=== PATIENT | male | born 1935 | race Caucasian/White ===

== ENCOUNTER 2016-09-16 11:13 | Outpatient (CLI) | payer MEDICARE, OTHER ==
[~2016-09-16] VITALS: Ht 188 cm; Wt 95.5 kg
[~2016-09-16 11:13] MED LIST: ASCORBIC ACID500 MG PO; BAYER CHEWABLE81 MG PO; BETAPACE 120 M120 MG PO; CYMBALTA30 MG PO; HYDROCODON-ACE1 EAC7; HYDROCODON-ACE1 EAC7 PO; HYDROCODONE-APA1 TAB PO; NEURONTIN 300300 MG PO; VITAMIN D10000 UNI1 PO; VITAMIN E400 UNI2 PO
[2016-09-16 13:01] VITALS: BP 128/72; Ht 188 cm; Wt 95.5 kg
--- NOTE | 2016-09-16 18:00 | NUR ---
1325- PT WITH PORT ALREADY ACCESSED. NS WITH BLOOD TUBING HOOKED UP TO PT. PREOP MEDICATIONS ADMINISTERED PER ORDERS. 1345- FIRST PRBC UNIT TRANSFUSING. VSS, SEE RECORD. LUNCH TOLERATED, PT RESTING WITH HOB ELEVATED. AT BEDSIDE. 1500- PT UP TO BR WITH X1 ASSIST. VOIDED WITHOUT DIFFICULTY. 1600-FIRST PRBC UNIT COMPLETED, SECOND PRBC UNIT CHECKED AND TRANSFUSING. 1700- PT CONTINUES TO REST. ENCOURAGED TO CALL FOR ASSIST IF NEEDED. REMAINS AT BEDSIDE. WILL CONTINUE TO MONITOR. 1800- PT VSS, SEE RECORD. TRANSFUSION CONTINUES.
--- NOTE | 2016-09-16 18:09 | NUR ---
REPORT GIVEN TO FLORA NASH RN.
--- NOTE | 2016-09-16 19:29 | NUR ---
PORT FLUSHED WITH HEPRIN AND SALINE, NEEDLE REMOVED
== END 2016-09-16 19:15 | disposition home or self-care (01) ==
LOC: D.OPS 11:13
DX: D64.9 Anemia, unspecified (principal); C90.00 Multiple myeloma not having achieved remission

== ENCOUNTER 2016-10-20 10:16 | Outpatient (CLI) | payer MEDICARE, OTHER ==
[~2016-10-20] VITALS: Ht 188 cm; Wt 95.5 kg
[2016-10-20 10:57] VITALS: Ht 188 cm; Wt 95.5 kg
--- NOTE | 2016-10-20 18:25 | NUR ---
PORT FLUSHED PER PROTOCOL, DC'D WITHOUT REDNESS OR SWELLING. DISCHARGE INSTRUCTIONS REVIEWED WITH PATIENT AND . VERBALIZED UNDERSTANDING. POST BLOOD TRANSFUSION INSTRUCTIONS REVIEWED, VERBALIZED UNDERSTANDING. NO S/S OF REACTION NOTED. DC'D HOME WITH VIA WC.
== END 2016-10-20 18:29 | disposition home or self-care (01) ==
LOC: D.OPS 10:16
DX: D64.9 Anemia, unspecified (principal)

== ENCOUNTER 2016-11-02 09:59 | Outpatient (CLI) | payer MEDICARE, OTHER ==
[~2016-11-02] VITALS: Ht 188 cm; Wt 93.2 kg
[2016-11-02] MEDS ORDERED: PRESERVISION AR1 CAP PO (12:09)
[2016-11-02] MEDS ORDERED: ASCORBIC ACID500 MG PO (12:09)
[2016-11-02 12:25] VITALS: BP 140/75; Ht 188 cm; Wt 93.2 kg
== END 2016-11-02 16:00 | disposition home or self-care (01) ==
LOC: D.OPS 09:59
DX: D64.9 Anemia, unspecified (principal)

== ENCOUNTER 2016-11-25 08:29 | Outpatient (CLI) | payer MEDICARE, OTHER ==
[~2016-11-25] VITALS: Ht 188 cm; Wt 95.5 kg
[~2016-11-25 08:29] MED LIST changes: +PRESERVISION AR1 CAP PO
[2016-11-25] MEDS ORDERED: DEXAMETHASONE1 MG PO (10:33)
[2016-11-25] MEDS ORDERED: [UNRECOGNIZED DRUG - OTHER] PO (10:33)
[2016-11-25] MEDS ORDERED: [UNRECOGNIZED DRUG - OTHER] (10:34)
[2016-11-25] MEDS ORDERED: BACTRIM DS TABL1 TAB PO (10:35)
[2016-11-25] MEDS ORDERED: ZOVIRAX400 MG PO (10:35)
[2016-11-25 10:36] VITALS: Ht 188 cm; Wt 95.5 kg
--- NOTE | 2016-11-25 13:00 | NUR ---
BLOOD TRANSFUSING, SEE BLOOD TRANSFUSION RECORD FOR VS
== END 2016-11-25 16:01 | disposition home or self-care (01) ==
LOC: D.OPS 08:29
DX: D64.9 Anemia, unspecified (principal)

== ENCOUNTER 2016-12-09 10:21 | Outpatient (CLI) | payer MEDICARE, OTHER ==
[~2016-12-09 10:21] MED LIST changes: +BACTRIM DS TABL1 TAB PO; +DEXAMETHASONE1 MG PO; +NINLARO; +ZOVIRAX400 MG PO; +[UNRECOGNIZED DRUG - OTHER] PO
--- NOTE | 2016-12-09 12:18 | NUR ---
RIGHT SCL INFUSAPORT ACCESSED USING 19G X 1 INCH WHEELER NEEDLE, GOOD BLOOD RETURN. NORMAL SALINE 500ML UP AT KVO WITH BLOOD TUBING.
[2016-12-09 14:29] VITALS: BP 119/81; BMI 27.0
--- NOTE | 2016-12-09 18:34 | NUR ---
181O REPORT FROM LONNIE LANGFORD R.N. PATIENT RECEIVING PLATELETS NO S/S OG BLOOD REACTIONS NOTED INFUSING VIA LEFT CHEST PORT NO REDNESS OR SWELLING.
--- NOTE | 2016-12-09 18:35 | NUR ---
1814 1ST UNIT OF PLATELETS COMPLETED. SECOND UNIT CHECJED BY 2 R.N.S. 1815 2ND UNIT PLATELETS HUNG AND INFUSING VIA PORT LEFT CHEST DRESSING INTACT NO REDNESS OR SWELLING.
--- NOTE | 2016-12-09 18:36 | NUR ---
1831 PLATELETS COMPLETE NO S/S OF BLOOD REACTIONS NOTED.
--- NOTE | 2016-12-09 18:57 | NUR ---
1847 FLUSHED PORT WITH SALINE AND HEPARIN. BLEEDING NOTED LEFT PORT SITE. PRESSURE APPLIED AND STOPPED. WHEELER NEEDLE DCD AND CATHETER INTACT.
--- NOTE | 2016-12-09 19:43 | NUR ---
193 NO S/S OF BLOOD REACTIONS NOTED. RESP EVEN AND NONLABORED. GIVEN DISCHARGE INSTRUCTIONS AND BLOOD POST TRANSFUSION SHEET. REMINDED TO KEEP BLOOD BAND ON X 72 HOURS.
--- NOTE | 2016-12-09 19:44 | NUR ---
1935 TO HOME VIA W/C WITH SPOUSE.
== END 2016-12-09 19:35 | disposition home or self-care (01) ==
LOC: D.OPS 10:21
DX: D69.6 Thrombocytopenia, unspecified (principal); D64.9 Anemia, unspecified

== ENCOUNTER 2017-01-06 09:40 | Outpatient (CLI) | payer MEDICARE, OTHER ==
[2017-01-06 10:07] VITALS: BP 135/88; BMI 27.7
--- NOTE | 2017-01-06 12:15 | NUR ---
1200- FIRST UNIT PRBC'S TRANSFUSING. PT SITTING UP IN BED WITH HOB ELEVATED. TOLERATING FOOD AND DRINK. VSS. WILL MONITOR.
--- NOTE | 2017-01-06 17:40 | NUR ---
1500-SECOND UNIT PRBC'S TRANSFUSING WITHOUT INCIDENT. AT BEDSIDE. VSS. CONTINUING TO MONITOR.
--- NOTE | 2017-01-06 17:41 | NUR ---
1705- SECOND UNTI COMPLETED. PT TO REMAIN FOR 1 HOUR FOR POST TRANSFUSION OBSERVATION AND VITAL SIGNS. PT COMFORTABLE. WILL CONTINUE TO MONITOR. VSS.
--- NOTE | 2017-01-06 18:18 | NUR ---
1809- DISCHARGE INSTRUCTIONS COMPLETED. PT VERBALIZES UNDERSTANDING. PAPERWORK SIGNED. PORT FLUSHED AND DEACCESSED. PT TOLERATED. 1814- PT DISCHARGED VIA WHEELCHAIR WITH
== END 2017-01-06 18:15 | disposition home or self-care (01) ==
LOC: D.OPS 09:40
DX: D64.9 Anemia, unspecified (principal); D69.6 Thrombocytopenia, unspecified

== ENCOUNTER → 2017-02-09 10:35 | Outpatient (CLI) | payer MEDICARE, OTHER ==
[~2017-02-09] VITALS: Ht 188 cm; Wt 95.5 kg
[2017-02-09 11:52] VITALS: BP 127/62; Ht 188 cm; Wt 95.5 kg
--- NOTE | 2017-02-09 13:30 | NUR ---
PORT IS ALREADY ACCESSED FROM DR'S OFFICE, ADALBERTO 10ML OUT FOR WASTE, THEN 10ML FOR TYPE AND CROSS MATCH. NS INFUSING AT KVO THROUGH BLOOD TUBING FOR TRANSFUSION. PRBC #1 UP WITH NS. EATING LUNCH.
--- NOTE | 2017-02-09 14:30 | NUR ---
PRBC'S INFUSING WITHOUT SIGNS OF REACTION AT 150ML/HR VIA PUMP.
--- NOTE | 2017-02-09 15:45 | NUR ---
SECOND UNIT OF PRBC'S UP WITH NEW TUBING AND NS AT 125ML/HR VIA PUMP.
--- NOTE | 2017-02-09 16:00 | NUR ---
REPORT TO JASON RAMIREZRN
--- NOTE | 2017-02-09 20:05 | NUR ---
1700 PT VOIDS QS. DECLINED OFFER OF SUPPER 1745 BLOOD HAS COMPLETED, DENIES PROBLEMS WITH TRANSFUSION. LINE BEING FLUSHED WITH NS. 1830 LINE HAS BEEN FLUSHED WITH NS AND HEPARIN PER PROTOCOL. PT IS TO RECEIVE TX TOMORROW CAME ACCESSED AND WILL LEAVE ACCESSED. 1845 NO PROBLEMS WITH TRANSFUSION, RELEASED IN WC, SURFACE SUPERVISOR HOME.
== END | disposition home or self-care (01) ==
LOC: D.OPS 09:30
DX: D64.9 Anemia, unspecified (principal); C90.00 Multiple myeloma not having achieved remission

== ENCOUNTER 2019-11-22 11:37 | Inpatient (IN) | payer MEDICARE, OTHER ==
[~2019-11-22] VITALS: Ht 188 cm; Wt 96.2 kg
[2019-11-22] MEDS ORDERED: VITAMIN B-121000 MCG PO (11:52)
[2019-11-22] MEDS ORDERED: DARZALEX (11:52)
[2019-11-22] MEDS ORDERED: FOLIC ACID1 MG PO (11:52)
[2019-11-22] MEDS ORDERED: CITRACAL + D E1 EACH PO (11:53)
[2019-11-22] MEDS ORDERED: BAYER CHEWABLE81 MG PO (11:53)
[2019-11-22 12:24] LABS: BASOPHILS 0 % (0-2); EOSINOPHILS 0.9 % (0-7); HEMATOCRIT 33.8 % (42.0-54.0); HEMOGLOBIN 10.9 g/dL (13.5-17.5); IMMATURE GRANULOCYTES 0.3 % (0-5); LYMPHOCYTES 15.9 % (15-50); MCH 32.2 pg (26.0-34.0); MCHC 32.2 g/dL (31.0-37.0); MCV 99.7 fL (80.0-100.0); MEAN PLATELET VOLUME 10.5 fL (7.4-10.4); MONOCYTES 11.6 % (2-11); NEUTROPHILS 71.3 % (40-80); RBC 3.39 10x6/uL (4.20-6.10); RDW 14.3 % (11.5-14.5); WBC 3.3 10x3/uL (4.8-10.8)
[2019-11-22 12:26] LABS: PLATELET COUNT 111 10x3/uL (130-400)
[2019-11-22 12:30] LABS: CALC OSMOLALITY 287 mosm/kg (275-300); CALCIUM 11.8 mg/dL (8.5-10.1); CARBON DIOXIDE 33.3 mmol/L (21.0-32.0); CHLORIDE - SERUM 103 mmol/L (98-107); CREATININE - SERUM 1.3 mg/dL (0.6-1.3); GLUCOSE 127 mg/dL (74-106); POTASSIUM - SERUM 3.8 mmol/L (3.5-5.1); SODIUM 141 mmol/L (136-145); UREA NITROGEN 27 mg/dL (7-18); eGFR NON AFRICAN AMERICAN 56 mL/min (90-120)
[2019-11-22 12:35] LABS: APTT 25.8 SECONDS (22.8-39.4); INR 1.05 (0.85-1.17); PROTIME 13.7 SECONDS (11.6-15.0)
[2019-11-22 12:45] LABS: ALBUMIN 2.8 g/dL (3.4-5.0); ALKALINE PHOSPHATASE 57 U/L (30-120); ALT (SGPT) 23 U/L (10-68); CKMB 0.6 U/L (0.0-3.6); CREATINE KINASE 28 UL (21-232); MAGNESIUM - SERUM 1.6 mg/dL (1.8-2.4); PROTEIN - SERUM 8.6 g/dL (6.4-8.2)
[2019-11-22 12:46] LABS: TROPONIN-I < 0.017 ng/mL (0.000-0.060)
[2019-11-22 12:58] VITALS: BP 127/91
--- NOTE | 2019-11-22 13:04 | NUR ---
URINE SAMPLE OBTAINED AND SENT TO LAB
[2019-11-22 13:16] LABS: BILIRUBIN NEGATIVE (NEGATIVE); KETONE NEGATIVE (NEGATIVE); NITRITE NEGATIVE (NEGATIVE); UROBILINOGEN NORMAL (NORMAL); WHITE CELLS - URINE 0-5 /hpf (0-5)
[2019-11-22 13:17] LABS: BACTERIA FEW /HPF (NONE SEEN)
[2019-11-22 13:57] VITALS: BP 145/94
--- NOTE | 2019-11-22 14:40 | NUR ---
COVID SWAB OBTAINED AND WALKED TO LAB
[2019-11-22 15:43] VITALS: BP 142/87
[2019-11-22 17:09] VITALS: BP 156/92
--- NOTE | 2019-11-22 19:50 | NUR ---
PT FROM ER VIA STRETCHER, PT ASSISTED TO BED, RESP EVEN AND UNLABORED, NO DISTRESS NOTED, CL IN REACH, SR UP X 2.
[2019-11-22 21:26] VITALS: BP 132/95
[2019-11-23] VITALS: BP 147/99
[2019-11-23 00:35] VITALS: BP 132/95; BMI 27.2
[2019-11-23 04:02] VITALS: BP 138/83
[2019-11-23 06:48] LABS: HEMATOCRIT 35.3 % (42.0-54.0); HEMOGLOBIN 11.3 g/dL (13.5-17.5); MCH 31.8 pg (26.0-34.0); MCV 99.4 fL (80.0-100.0); MEAN PLATELET VOLUME 10.4 fL (7.4-10.4); PLATELET COUNT 108 10x3/uL (130-400); RBC 3.55 10x6/uL (4.20-6.10); RDW 14.3 % (11.5-14.5)
[2019-11-23 06:58] LABS: ANION GAP 7.2 mmol/L (8-16); CALCIUM 11.6 mg/dL (8.5-10.1); CARBON DIOXIDE 33.5 mmol/L (21.0-32.0); CREATININE - SERUM 1.4 mg/dL (0.6-1.3); MAGNESIUM - SERUM 1.4 mg/dL (1.8-2.4); PHOSPHOROUS 4.6 mg/dL (2.5-4.9); POTASSIUM - SERUM 3.7 mmol/L (3.5-5.1)
[2019-11-23 09:06] VITALS: BP 150/84
[2019-11-23 12:15] LABS: EOSINOPHILS 1 % (0-7); LYMPHOCYTES 22 % (15-50); MONOCYTES 16 % (2-11); NEUTROPHILS 57 % (40-80); PLATELET ESTIMATE DECREASED; ROULEAUX OCC
--- NOTE | 2019-11-23 13:53 | NUR ---
RECEIVED REPORT FROM ISAI DASH INTRODUCED MYSELF TO PATIENT AND FAMILY QUICK ASSESSMENT COMPLETE UTILIZING CONDOM CATH NAD SPOUSE REMAINS AT BEDSIDE
[2019-11-23 14:44] VITALS: BMI 27.2
[2019-11-23 20:15] VITALS: BP 139/92
--- NOTE | 2019-11-24 03:07 | NUR ---
PT IN BED, AWAKE, CONFUSED, RESP EVEN AND UNLABORED, NO DISTRESS NOTED, CL IN REACH, SR UP X 2.
--- NOTE | 2019-11-24 04:09 | NUR ---
I have reviewed this patient and I concur with the Shift Assessment completed by the Licensed Practical Nurse today this shift.
[2019-11-24 04:30] VITALS: BP 163/95
[2019-11-24 05:06] LABS: BASOPHILS 0 % (0-2); EOSINOPHILS 1.4 % (0-7); HEMATOCRIT 31.8 % (42.0-54.0); IMMATURE GRANULOCYTES 0.3 % (0-5); LYMPHOCYTES 22.8 % (15-50); MCH 31.4 pg (26.0-34.0); MCHC 31.4 g/dL (31.0-37.0); MEAN PLATELET VOLUME 9.9 fL (7.4-10.4); MONOCYTES 12.8 % (2-11); NEUTROPHILS 62.7 % (40-80); PLATELET COUNT 87 10x3/uL (130-400); RBC 3.18 10x6/uL (4.20-6.10); RDW 14.3 % (11.5-14.5); WBC 2.9 10x3/uL (4.8-10.8)
[2019-11-24 05:20] LABS: ANION GAP 8.2 mmol/L (8-16); CALCIUM 10.6 mg/dL (8.5-10.1); CARBON DIOXIDE 32.7 mmol/L (21.0-32.0); CREATININE - SERUM 1.3 mg/dL (0.6-1.3)
[2019-11-24 05:23] LABS: POTASSIUM - SERUM 2.9 mmol/L (3.5-5.1)
[2019-11-24 10:02] VITALS: BP 170/112
[2019-11-24 14:20] VITALS: BP 144/93
[2019-11-24 17:06] VITALS: BP 147/99
--- NOTE | 2019-11-24 19:23 | NUR ---
I have reviewed this patient and I concur with the Shift Assessment completed by the Licensed Practical Nurse today this shift.
[2019-11-24 20:00] VITALS: BP 149/105
[2019-11-25 00:02] VITALS: BP 145/81
[2019-11-25 04:20] VITALS: BP 153/104
[2019-11-25 06:17] LABS: BASOPHILS 0 % (0-2); EOSINOPHILS 0.4 % (0-7); HEMATOCRIT 31.9 % (42.0-54.0); HEMOGLOBIN 10.4 g/dL (13.5-17.5); IMMATURE GRANULOCYTES 0.6 % (0-5); LYMPHOCYTES 10.2 % (15-50); MCH 32.1 pg (26.0-34.0); MCHC 32.6 g/dL (31.0-37.0); MCV 98.5 fL (80.0-100.0); MEAN PLATELET VOLUME 9.9 fL (7.4-10.4); MONOCYTES 10.1 % (2-11); NEUTROPHILS 78.7 % (40-80); PLATELET COUNT 93 10x3/uL (130-400); RBC 3.24 10x6/uL (4.20-6.10); RDW 14.2 % (11.5-14.5)
[2019-11-25 06:24] LABS: WBC 5.4 10x3/uL (4.8-10.8)
[2019-11-25 06:39] LABS: ANION GAP 8.9 mmol/L (8-16); CALCIUM 9.7 mg/dL (8.5-10.1); CARBON DIOXIDE 30.2 mmol/L (21.0-32.0); CREATININE - SERUM 1.2 mg/dL (0.6-1.3); POTASSIUM - SERUM 3.1 mmol/L (3.5-5.1)
--- NOTE | 2019-11-25 07:15 | NUR ---
RECEIVE SHIFT REPORT. RESTING IN BED AT BEDSIDE. DENIES ANY NEEDS AT THIS TIME. WILL CONTINUE PLAN OF CARE AND SAFETY PRECAUTIONS.
[2019-11-25 07:48] LABS: PLATELET ESTIMATE NORMAL
[2019-11-25 08:46] VITALS: BP 138/92
[2019-11-25 11:40] VITALS: BP 137/85
[2019-11-25 15:00] VITALS: BP 144/66
[2019-11-25 20:00] VITALS: BP 168/104
--- NOTE | 2019-11-25 20:03 | NUR ---
SPOKE WITH , PASSCODE PROVIDED. UPDATE GIVEN, QUESTIONS ANSWERED.
[2019-11-26] VITALS: BP 140/80
[2019-11-26 05:28] LABS: BASOPHILS 0 % (0-2); EOSINOPHILS 0.2 % (0-7); HEMATOCRIT 31.4 % (42.0-54.0); HEMOGLOBIN 10.1 g/dL (13.5-17.5); IMMATURE GRANULOCYTES 0.4 % (0-5); LYMPHOCYTES 12.8 % (15-50); MCH 31.6 pg (26.0-34.0); MCHC 32.2 g/dL (31.0-37.0); MCV 98.1 fL (80.0-100.0); MEAN PLATELET VOLUME 10.4 fL (7.4-10.4); MONOCYTES 14.4 % (2-11); NEUTROPHILS 72.2 % (40-80); PLATELET COUNT 98 10x3/uL (130-400); RDW 14.2 % (11.5-14.5); WBC 4.9 10x3/uL (4.8-10.8)
[2019-11-26 05:55] LABS: CARBON DIOXIDE 25.4 mmol/L (21.0-32.0); POTASSIUM - SERUM 3.4 mmol/L (3.5-5.1)
[2019-11-26 05:56] LABS: INR 1.11 (0.85-1.17); PROTIME 14.2 SECONDS (11.6-15.0)
[2019-11-26 06:09] LABS: CREATININE - SERUM 1.6 mg/dL (0.6-1.3)
[2019-11-26 09:11] VITALS: BP 156/94
[2019-11-26 12:41] VITALS: BP 165/107
[2019-11-26 16:58] VITALS: BP 156/97
--- NOTE | 2019-11-26 19:00 | NUR ---
BEDSIDE REPORT RECEIVED AND CARE OF PT ASSUMED. PT LYING IN LOW ESPINOZA'S POSITION WITH EYES CLOSED AND EASY RESPIRATIONS. LEFT INFUSAPORT PATENT WITH NS INFUSING AT 75 ML/HR. WILL MONITOR FOR NEEDS.
[2019-11-26 20:00] VITALS: BP 132/80
--- NOTE | 2019-11-26 20:03 | NUR ---
HS MEDICATIONS GIVEN. WILL CONTINUE TO MONITOR FOR NEEDS.
[2019-11-27] VITALS: BP 169/98
[2019-11-27 04:00] VITALS: BP 143/80
[2019-11-27 06:16] LABS: BASOPHILS 0 % (0-2); EOSINOPHILS 0.6 % (0-7); HEMATOCRIT 29.9 % (42.0-54.0); HEMOGLOBIN 9.5 g/dL (13.5-17.5); IMMATURE GRANULOCYTES 0.2 % (0-5); LYMPHOCYTES 10.1 % (15-50); MCH 31.5 pg (26.0-34.0); MCHC 31.8 g/dL (31.0-37.0); MEAN PLATELET VOLUME 10.2 fL (7.4-10.4); NEUTROPHILS 70.1 % (40-80); PLATELET COUNT 81 10x3/uL (130-400); RBC 3.02 10x6/uL (4.20-6.10); RDW 14.4 % (11.5-14.5); WBC 4.7 10x3/uL (4.8-10.8)
[2019-11-27 06:31] LABS: ANION GAP 11.2 mmol/L (8-16); CALCIUM 8.7 mg/dL (8.5-10.1); CARBON DIOXIDE 24.5 mmol/L (21.0-32.0); CREATININE - SERUM 2.2 mg/dL (0.6-1.3); POTASSIUM - SERUM 3.7 mmol/L (3.5-5.1)
[2019-11-27 07:16] LABS: RAPID PLASMA REAGIN Non Reactive (Non Reactive)
--- NOTE | 2019-11-27 09:00 | NUR ---
PT GIVEN BED BATH BY NURSING STUDENTS. BED ALARM ON. CL IN REACH. SALVATORE IN ROOM. WCTM
[2019-11-27 09:46] VITALS: BP 167/115
--- NOTE | 2019-11-27 10:16 | NUR ---
BLADDER SCAN SHOWED 999+ ML OF FLUID IN BLADDER. CAZARES PLACED PER DR MOHAN. CLAMPED CAZARES AFTER 1000 ML. WILL UNCLAMP TO DRAIN REST OF BLADDER. TOLERATED WELL. STATES SOME RELIEF. SALVATORE IN ROOM. TOOK MEDS PER EMAR. SMALL PILLS TWO AT A TIME. CL IN REACH. BED ALARM ON. WCTM
--- NOTE | 2019-11-27 10:57 | NUR ---
CALLED RT FOR BREATHING TREATMENT AFTER PHYSICAL THERAPY GOT PT TO SIDE OF BED. STATED DESATED TO 88% PULSE OX. GETTING SHORT OF BREATHE AND DIZZY. PT LAID BACK DOWN AND O2 SAT CAME BACK UP. CL IN REACH. WCTM
[2019-11-27 12:00] VITALS: BP 160/85
--- NOTE | 2019-11-27 13:12 | NUR ---
PT SALVATORE STATES IS A DNR. WILL MAKE WISHES KNOWN TO DR MOHAN IN AM.
[2019-11-27 13:52] LABS: PLATELET ESTIMATE DECREASED
--- NOTE | 2019-11-27 13:56 | NUR ---
Nutrition Follow-up: Diet: Cardiac PO intake: ~58% average x last 3 meals Last BM: 11/25/19 x 2. Wt: 212# (11/23/19) Meds noted: abx, probiotics, NS@125 Labs noted: BUN 27(H), Cr 2.2(H), GFR 30(L), Glu 113(H) Recommend continue current diet. Encourage PO intake and offer oral nutrition supplements. RD following.
[2019-11-27 13:58] LABS: ROULEAUX OCC
--- NOTE | 2019-11-27 14:47 | NUR ---
ORDER FOR DNR ORDER OBTAINED. LIVING WILL DOCUMENTED VIA [facility]. COPY PLACED IN PAPER CHART. SALVATORE IN ROOM. CL IN REACH. TM
--- NOTE | 2019-11-27 17:29 | NUR ---
OT NOTE: PT COMPLETED SUPINE TO SIT WITH MOD X 2. PT COMPLETED EOB SITTING WITH MIN A. PT COMPLETED FACE HYGIENE WITH MIN A. [id number] THANK YOU,FREYA MADDEN
[2019-11-27 18:24] VITALS: BP 113/69
--- NOTE | 2019-11-27 19:30 | NUR ---
ASSUMED CARE OF PATIENT AT 1900, PATIENT RESTING QUIETLY WITH EYES CLOSED, AWAKENS TO VERBAL STIMULI, NO DISTRESS NOTED, IV INFUSING WITHOUT COMPLICATIONS, CAZARES DRAINING VIA GRAVITY WITHOUT COMPLICATIONS, EDEMA BLE, WILL CONTINUE TO MONITOR PATIENT, CALL LIGHT WITHIN REACH
[2019-11-27 19:36] VITALS: BP 133/79
[2019-11-28] VITALS (7 sets, daily range): BP systolic 134–163; BP diastolic 71–93; Ht 188 cm; Wt 96.2 kg
--- NOTE | 2019-11-28 12:10 | MORECARE ---
CASE MANAGEMENT DISCHARGE SUMMARY PATIENT: ALICIA MEDEIROS UNIT: [id number] ADM DATE: 11/22/19 AGE: 84 : 34 SEX: M ROOM/BED: D.2225 AUTHOR: AUDREY,DOC PHYSICIAN: REFERRING PHYSICIAN: ISMAEL MOHAN MD DATE OF SERVICE: 11/28/19 Discharge Plan Patient Name: ALICIA MEDEIROS Facility: [facility]:[place] : 1935 Planned Disposition: Half-Way Facility Anticipated Discharge Date: Discharge Date: Expected LOS: Initial Reviewer: [email or web address] Initial Review Date: 11/28/2019 Generated: 11/28/19 1:10 pm Comments DCP- Discharge Planning Updated by [id number]: Lexus Finley on 11/28/19 11:[address] Patient Name: ALICIA MEDEIROS Admission Status: ER Accout number: [id number] Admission Date: 11-22-2019 : 1935 Admission Diagnosis:METABOLIC ENCEPHALOPATHY Attending: ISMAEL MOHAN Current LOS: 6 Anticipated DC Date: Planned Disposition: Half-Way Facility Primary Insurance: MEDICARE A & B Discharge Planning Comments: CM met PATIENT SALVATORE after explaining CM role and obtaining verbal consent. SHE IS ALSO HIS POA. CM discussed availability / needs of home health, REHAB and medical equipment. SHE IS INTERESTED IN SNF THEN TRANSITION TO [facility] INBOARD/OUTBOARD OR POSSIBLLY HOSPICE. SHE IS INTERESTED IN [facility] OR [facility]. CANDACE SIGNED. I AM FAXING REFERRAL TO [facility] NOW. Traffic Rate Analyst: Lexus Finley DCPIA - Discharge Planning Initial Assessment Updated by [id number]: Lexus Finley on 11/28/19 12:06 pm * Is the patient Alert and Oriented? Yes * Preadmission Environment Home with Family * Other Equipment WALKER * List name and contact numbers for known caregivers / representatives who currently or will assist patient after discharge: SALVATORE//POA [phone] * Community resources currently utilized None * Additional services required to return to the preadmission environment? Yes * Can the patient safely return to the preadmission environment? No * Has this patient been hospitalized within the prior 30 days at any hospital? No Patient Name: ALICIA MEDEIROS Page [phone] at 1210 All edits/amendments must be made on the electronic document DICTATION DATE: 11/28/191209 BENCH CARPENTER: CLEMENT 11/28/19 1210 RPT#: [id number] DC DATE: STATUS: ADM IN [facility] [address] [place] [address] END OF REPORT
[2019-11-28 13:04] LABS: ANION GAP 10.9 mmol/L (8-16); CALCIUM 7.9 mg/dL (8.5-10.1); CARBON DIOXIDE 26.3 mmol/L (21.0-32.0); POTASSIUM - SERUM 3.2 mmol/L (3.5-5.1)
[2019-11-28 13:05] LABS: CREATININE - SERUM 1.3 mg/dL (0.6-1.3)
--- NOTE | 2019-11-28 13:44 | NUR ---
OT NOTE: PT ALERT IN BED THIS AM. IMPROVED ABILITY ANSWERING QUESTIONS. MAX ASSIST X 2 FOR BED MOB..PT VERY FEARFUL DURING ALL MOBILTY; SEVERE POSTURAL INSTABILITY; POOR PROPRIOCEPTION. UNABLE TO SIT UNSUPPORTED..UNABLE TO RAISE UES WHILE ON EOB DUE TO FEAR OF FALLING. PRACTICED BED MOB INCLUDING ROLLING SIDE TO SIDE WITH MAX ASSIST X 2; MAX ASSIST X 2 FOR REPOSITIONING. CHELI CHOI, OTR/L [phone]
--- NOTE | 2019-11-28 14:14 | NUR ---
PT SPOUSE CALLED ME TO ROOM STATED PT SAYS STOMACH HURTS HAS NOT HAD A BM IN OVER A DAY AND HE IS NOT EATING WELL, CALLED DR LEWIS OFFICE AND RELAYED MESSAGE TO DR MOHAN'S NURSE. NURSE RETURNED CALL AND PER DR MOHAN M.O.M 30MG Q6 PRN AND A KUB. PLACING ORDERS NOW
--- NOTE | 2019-11-28 15:11 | NUR ---
I have reviewed this patient and I concur with the Shift Assessment completed by the Licensed Practical Nurse today this shift.
--- NOTE | 2019-11-29 02:53 | NUR ---
I have reviewed this patient and I concur with the Shift Assessment completed by the Licensed Practical Nurse today this shift.
[2019-11-29 04:00] VITALS: BP 160/98; BP 170/105
[2019-11-29 06:07] LABS: BASOPHILS 0 % (0-2); EOSINOPHILS 0.5 % (0-7); HEMATOCRIT 27.5 % (42.0-54.0); HEMOGLOBIN 8.8 g/dL (13.5-17.5); IMMATURE GRANULOCYTES 0.5 % (0-5); LYMPHOCYTES 11.3 % (15-50); MCH 31.2 pg (26.0-34.0); MCV 97.5 fL (80.0-100.0); MEAN PLATELET VOLUME 10.4 fL (7.4-10.4); MONOCYTES 20.1 % (2-11); NEUTROPHILS 67.6 % (40-80); PLATELET COUNT 90 10x3/uL (130-400); RBC 2.82 10x6/uL (4.20-6.10); RDW 14.1 % (11.5-14.5)
[2019-11-29 06:29] LABS: ANION GAP 10.9 mmol/L (8-16); CALCIUM 7.9 mg/dL (8.5-10.1); CREATININE - SERUM 1.1 mg/dL (0.6-1.3)
[2019-11-29 06:59] LABS: POTASSIUM - SERUM 2.9 mmol/L (3.5-5.1)
--- NOTE | 2019-11-29 07:14 | NUR ---
PT IN BED WITH HOB IN FOWLERS POSITION, PER LAB PATIENT HAS CRITICAL K+ OF 2.9. PER PROTOCOL, ADMINISTERED PRN K+. FIRST BAG RUNNING. NO NEEDS VOICED FROM PATIENT, CL IN REACH, BED IN LOWEST POSITION, ASSUME PATIENT CARE
[2019-11-29 08:51] VITALS: BP 167/101
--- NOTE | 2019-11-29 08:57 | MORECARE ---
CASE MANAGEMENT DISCHARGE SUMMARY PATIENT: ALICIA MEDEIROS UNIT: [id number] ADM DATE: 11/22/19 AGE: 84 : 34 SEX: M ROOM/BED: D.2225 AUTHOR: AUDREYDOC PHYSICIAN: REFERRING PHYSICIAN: ISMAEL MOHAN MD DATE OF SERVICE: 11/29/19 Discharge Plan Patient Name: ALICIA MEDIEROS Facility: [facility]:[place] : 1935 Planned Disposition: Custodial Facility Anticipated Discharge Date: Discharge Date: Expected LOS: Initial Reviewer: [email or web address] Initial Review Date: 11/28/2019 Generated: 11/29/19 9:56 am Comments DCP- Discharge Planning Updated by [id number]: Lexus Finley on 11/29/19 7:[address] Patient Name: ALICIA MEDEIROS Admission Status: ER Accout number: [id number] Admission Date: 11-22-2019 : 1935 Admission Diagnosis:METABOLIC ENCEPHALOPATHY Attending: ISMAEL MOHAN Current LOS: 7 Anticipated DC Date: Planned Disposition: Custodial Facility Primary Insurance: MEDICARE A & B Discharge Planning Comments: RECEIVED CALL FROM [facility] AND THEY DO NOT HAVE BED AVAILABILITY. I HAVE FAXED TO [facility] CALL BACK. Neurophysiological Technician: Lexus Finley DCP- Discharge Planning Updated by [email or web address]: Lexus Finley on 11/28/19 11:[address] Patient Name: ALICIA MEDEIROS Admission Status: ER Accout number: [id number] Admission Date: 11-22-2019 : 1935 Admission Diagnosis:METABOLIC ENCEPHALOPATHY Attending: ISMAEL MOHAN Current LOS: 6 Anticipated DC Date: Planned Disposition: Custodial Facility Primary Insurance: MEDICARE A & B Discharge Planning Comments: CM met PATIENT SALVATORE after explaining CM role and obtaining verbal consent. SHE IS ALSO HIS POA. CM discussed availability / needs of home health, REHAB and medical equipment. SHE IS INTERESTED IN SNF THEN TRANSITION TO SNF OR POSSIBLLY HOSPICE. SHE IS INTERESTED IN [facility] OR [facility]. CANDACE SIGNED. I AM FAXING REFERRAL TO [facility] NOW. Neurophysiological Technician: Lexus Finley DCPIA - Discharge Planning Initial Assessment Updated by [id number]: Lexus Finley on 11/28/19 12:06 pm * Is the patient Alert and Oriented? Yes * Preadmission Environment Home with Family * Other Equipment WALKER * List name and contact numbers for known caregivers / representatives who currently or will assist patient after discharge: SALVATORE//POA [phone] * Community resources currently utilized None * Additional services required to return to the preadmission environment? Yes * Can the patient safely return to the preadmission environment? No * Has this patient been hospitalized within the prior 30 days at any hospital? No External Providers External Provider: [facility] Next Contact Date: Service Request Date: Service Type: Resolution: Reviewer: Comments: Coverage Notice Reviewer: [id number] - Lexusdonnie Finley Notice Issued Date-Time: 11/28/2019 12:15 Notice Type: Patient Choice Letter Notice Delivered To: Family Member Relationship to Patient: Power of Building Engineer Manager Of Information Name: SALVATORE IS AND POA Delivery Method: HAND - Hand Delivered Danae Days: Prior Verbal Notification: Recipient Understood Notice: Yes Recipient Signature: Yes Med Rec Note Co-signed by Attending: Coverage Notice Comment: CHANTELL ARAYA. Last DP export: 11/28/19 11:10 a Patient Name: ALICIA MEDEIROS Page [phone] at 0857 All edits/amendments must be made on the electronic document DICTATION DATE: 11/29/19855 BRANCH OPERATIONS COORDINATOR: CLEMENT 11/29/1957 RPT#: [id number] DC DATE: STATUS: ADM IN [facility] [address] [place] [address] END OF REPORT
--- NOTE | 2019-11-29 11:35 | NUR ---
PATIENT C/O PAIN IN LEFT HIP LEG AREA, REPLETED PT POTASSIUM, PATIENT HAS NOT HAD A BM SINCE TUESDAY EVENING, SPOUSE VERY CONCERNED, PATIENT ABLE TO EAT HALF OF HIS BREAKFAST AND HAD A M.O.M THIS MORNING WITH SCHEDULED MEDS, TOLD PATIENT SPOUSE IF PATIENT STILL HAS NOT GONE THIS AFTERNOON WILL CALL DR MOHAN. NO OTHER NEEDS VOICED, CONTINUE WITH PLAN OF CARE
[2019-11-29 11:38] LABS: ANISOCYTOSIS OCC; HYPOCHROMASIA OCC; PLATELET ESTIMATE DECREASED; ROULEAUX OCC
[2019-11-29 11:59] VITALS: BP 135/93
--- NOTE | 2019-11-29 15:30 | NUR ---
OT NOTE: PT REMAINS VERY CONFUSED.. ORIENTED TO SELF ONLY. DIFFICULTY FOLLOWING 1 STEP COMMANDS. STARTED TMT WITH A/AROM FOR UES, OF WHICH PT PERFORMED WELL, HOWEVER, WITH ATTEMPTS FOR LE DRESSING, PT RESISTANT IN ALL MOVEMENT; PHYSICALLY HAD TO MOVE ALL JOINTS REQUIRING MODERATE ASSIST. ATTEMPTED BED MOB, HOWEVER, DUE TO PTS POSTURAL INSTABILITY, HE IS EXTREMELEY FEARFUL OF ALL MOVEMENT. SUPINE TO SIT WITH MAX ASSIST X 2. UPON PLACING PT BACK TO SUPINE, PERFORMED JOINT FOR SEVERAL MIN TO RELAX UE MUSCLES AND LESSEN ANXIETY. CHELI CHOI, OTR/L [phone]
[2019-11-29 16:23] VITALS: BP 131/88
--- NOTE | 2019-11-29 16:38 | MORECARE ---
CASE MANAGEMENT DISCHARGE SUMMARY PATIENT: ALICIA MEDEIROS UNIT: [id number] ADM DATE: 11/22/19 AGE: 84 : 34 SEX: M ROOM/BED: D.2225 AUTHOR: AUDREYDOC PHYSICIAN: REFERRING PHYSICIAN: ISMAEL MOHAN MD DATE OF SERVICE: 11/29/19 Discharge Plan Patient Name: ALICIA MEDEIROS Facility: [facility]:[place] : 1935 Planned Disposition: Half-Way Facility Anticipated Discharge Date: Discharge Date: Expected LOS: Initial Reviewer: [id number] Initial Review Date: 11/28/2019 Generated: 11/29/19 5:37 pm Comments DCP- Discharge Planning Updated by [email or web address]: Lexus Finley on 11/29/19 7:[address] Patient Name: ALICIA MEDEIROS Admission Status: ER Accout number: [id number] Admission Date: 11-22-2019 : 1935 Admission Diagnosis:METABOLIC ENCEPHALOPATHY Attending: ISMAEL MOHAN Current LOS: 7 Anticipated DC Date: Planned Disposition: Half-Way Facility Primary Insurance: MEDICARE A & B Discharge Planning Comments: RECEIVED CALL FROM [facility] AND THEY DO NOT HAVE BED AVAILABILITY. I HAVE FAXED TO [facility] CALL BACK. Athletic Training Internship: Lexus Finley DCP- Discharge Planning Updated by [id number]: Lexus Finley on 11/28/19 11:[address] Patient Name: ALICIA MEDEIROS Admission Status: ER Accout number: [id number] Admission Date: 11-22-2019 : 1935 Admission Diagnosis:METABOLIC ENCEPHALOPATHY Attending: ISMAEL MOHAN Current LOS: 6 Anticipated DC Date: Planned Disposition: Half-Way Facility Primary Insurance: MEDICARE A & B Discharge Planning Comments: CM met PATIENT SALVATORE after explaining CM role and obtaining verbal consent. SHE IS ALSO HIS POA. CM discussed availability / needs of home health, REHAB and medical equipment. SHE IS INTERESTED IN SNF THEN TRANSITION TO [facility] OR POSSIBLLY HOSPICE. SHE IS INTERESTED IN [facility] OR [facility]. CANDACE SIGNED. I AM FAXING REFERRAL TO [facility] NOW. Athletic Training Internship: Lexus Finley DCPIA - Discharge Planning Initial Assessment Updated by [id number]: Lexus Finley on 11/28/19 12:06 pm * Is the patient Alert and Oriented? Yes * Preadmission Environment Home with Family * Other Equipment WALKER * List name and contact numbers for known caregivers / representatives who currently or will assist patient after discharge: SALVATORE//POA [phone] * Community resources currently utilized None * Additional services required to return to the preadmission environment? Yes * Can the patient safely return to the preadmission environment? No * Has this patient been hospitalized within the prior 30 days at any hospital? No External Providers External Provider: [facility] Next Contact Date: Service Request Date: Service Type: Resolution: Reviewer: Comments: Coverage Notice Reviewer: [id number] - Lexusdonnie Finley Notice Issued Date-Time: 11/28/2019 12:15 Notice Type: Patient Choice Letter Notice Delivered To: Family Member Relationship to Patient: Power of Post Adoption Coordinator Privacy Manager Name: SALVATORE IS AND POA Delivery Method: HAND - Hand Delivered Danae Days: Prior Verbal Notification: Recipient Understood Notice: Yes Recipient Signature: Yes Med Rec Note Co-signed by Attending: Coverage Notice Comment: CHANTELL ARAYA. Last DP export: 11/29/19 7:57 a Patient Name: ALICIA MEDEIROS Page 66896 at 1638 All edits/amendments must be made on the electronic document DICTATION DATE: 11/29/191636 STARS ANALYTICAL LEAD: CLEMENT 11/29/19 1637 RPT#: [id number] DC DATE: STATUS: ADM IN [facility] [address] [place] [address] END OF REPORT
--- NOTE | 2019-11-29 16:49 | NUR ---
OT NOTE: PT REQUIRED MOD/MAX A FOR SUPINE TO SIT . PT COMPLETED EOB SITTING WITH MIN A. PT COMPLETED UE AROM TOLERATED. [phone] THANK YOU,FREYA MADDEN
--- NOTE | 2019-11-29 16:52 | NUR ---
PATIENT STATED SHE WAS GOING HOME FOR THE DAY AND ASKED THAT WE FEED PATIENT, RELAYED MESSAGE TO ADOBE CQ DEVELOPER IN CASE UNAVALABLE AT THE TIME DINNER IS SERVED, PATIENT STILL HAS NOT USED THE BATHROOM AT THIS TIME, WILL CONTINUE WITH PLAN OF CARE
--- NOTE | 2019-11-29 18:45 | NUR ---
I have reviewed this patient and I concur with the Shift Assessment completed by the Licensed Practical Nurse today this shift.
[2019-11-29 20:00] VITALS: BP 100/63
[2019-11-30] VITALS: BP 100/63
--- NOTE | 2019-11-30 03:11 | NUR ---
I have reviewed this patient and I concur with the Shift Assessment completed by the Licensed Practical Nurse today this shift.
--- NOTE | 2019-11-30 08:00 | NUR ---
ASSESSMENT PER FLOW SHEET. PATIENT IS WITHOUT DISTRESS.CALL LIGHT IN REACH. BED ALARM ON AND WORKING. AT BEDSIDE.
[2019-11-30 08:49] VITALS: BP 166/115
[2019-11-30 12:39] VITALS: BP 140/82
[2019-11-30 16:53] VITALS: BP 111/84
--- NOTE | 2019-11-30 18:46 | NUR ---
PATIENT IS WITHOUT CHANGE. CONT PLAN OF CARE
[2019-11-30 20:00] VITALS: BP 142/91
--- NOTE | 2019-11-30 20:02 | NUR ---
SPOKE WITH , PASSCODE GIVEN. UPDATE GIVEN, QUESTIONS ANSWERED.
[2019-12-01] VITALS: BP 152/97
[2019-12-01 04:00] VITALS: BP 149/99
[2019-12-01 06:42] LABS: CALC OSMOLALITY 280 mosm/kg (275-300); CALCIUM 7.3 mg/dL (8.5-10.1); CHLORIDE - SERUM 107 mmol/L (98-107); CREATININE - SERUM 0.8 mg/dL (0.6-1.3); GLUCOSE 92 mg/dL (74-106); POTASSIUM - SERUM 3.6 mmol/L (3.5-5.1); SODIUM 141 mmol/L (136-145); UREA NITROGEN 13 mg/dL (7-18); eGFR NON AFRICAN AMERICAN > 90 mL/min (90-120)
[2019-12-01 06:48] LABS: BASOPHILS 0 % (0-2); EOSINOPHILS 1.9 % (0-7); HEMATOCRIT 27.6 % (42.0-54.0); HEMOGLOBIN 8.7 g/dL (13.5-17.5); IMMATURE GRANULOCYTES 0.6 % (0-5); LYMPHOCYTES 18.5 % (15-50); MCH 31.5 pg (26.0-34.0); MCHC 31.5 g/dL (31.0-37.0); MEAN PLATELET VOLUME 10.6 fL (7.4-10.4); MONOCYTES 19.2 % (2-11); NEUTROPHILS 59.8 % (40-80); RBC 2.76 10x6/uL (4.20-6.10); RDW 14.2 % (11.5-14.5); WBC 3.1 10x3/uL (4.8-10.8)
[2019-12-01 06:51] LABS: PLATELET COUNT 114 10x3/uL (130-400)
--- NOTE | 2019-12-01 07:15 | NUR ---
RECEIVED BEDSIDE REPORT. A&O TO SELF AND PLACE. DENIES PAIN. SPOUSE AT BEDSIDE. LEFT CHEST PORT, PATENT AND INFUSING, NO REDNESS OR SWELLING. CAZARES IN PLACE, PATENT AND DRAINING, CONCENTRATED URINE, STATLOCK IN PLACE. GENERALIZED EDEMA IN BILAT LOWER EXTREMITIES. PT IS DNR. INCONTIN OF BOWELS. EDUCATED PT AND SPOUSE ON CL AND NEEDS, VERBALIZED UNDERSTANDING. BED LOW, RAILS X2. CL IN REACH. WILL CONTINUE TO MONITOR.
[2019-12-01 07:44] VITALS: BP 138/99
--- NOTE | 2019-12-01 10:30 | NUR ---
COLORMAN ASSISTED PT WITH BED BATH, GOWN AND FULL LININ CHANGE. PT TOLERATED WELL.
[2019-12-01 11:43] VITALS: BP 141/95
--- NOTE | 2019-12-01 13:10 | NUR ---
PT C/O PAIN 10/21, PROVIDED PAIN MEDS PER ORDER. SPOUSE ASKED ABOUT CM PLANS FOR D/C TO FACILITY ON TUESDAY, EDUCATED PT THAT CM WOULD BE HERE TUESDAY MORNING AND BE ABLE TO ANSWER QUESTIONS REGARDING PLACEMENT. BED LOW, CL IN REACH.
[2019-12-01 15:56] VITALS: BP 129/81
--- NOTE | 2019-12-01 17:35 | NUR ---
PT C/O PAIN 10/21, PROVIDED PAIN MEDS PER ORDER.
--- NOTE | 2019-12-01 19:00 | NUR ---
BEDSIDE REPORT RECEIVED AND CARE OF PT ASSUMED. PT LYING IN SUPINE POSITION WITH EYES CLOSED. CAZARES CATHETER DRAINING TO GRAVITY WITH YELLOW URINE IN COLLECTION BAG. LEFT IP ACCESSED AND PATENT WITH NS INFUSING AT 30 ML/HR. WILL MONITOR FOR NEEDS.
--- NOTE | 2019-12-01 20:30 | NUR ---
HS MEDICATIONS GIVEN. WILL CONTINUE TO MONITOR FOR NEEDS.
[2019-12-01 20:32] VITALS: BP 135/90
--- NOTE | 2019-12-01 21:41 | NUR ---
PT TURNED ONTO RIGHT SIDE PROPPED WITH PILLOWS, PER TURN SCHEDULE.
[2019-12-02 00:31] VITALS: BP 136/92
--- NOTE | 2019-12-02 00:57 | NUR ---
PT TURNED TO LEFT SIDE PER TURN SCHEDULE, PROPPED WITH PILLOWS. HEELS BRIDGED.
--- NOTE | 2019-12-02 01:17 | NUR ---
GAVE OXY 10 PO PER PRN ORDER, PT MOANING AND YELLING OUT IN PAIN. WILL MONITOR FOR EFFECTIVENESS.
[2019-12-02 05:57] VITALS: BP 144/93
--- NOTE | 2019-12-02 08:14 | NUR ---
PATIENT MOANING THIS MORNING WHEN ARRIVED, PT STATED HE IS IN PAIN BUT UNABLE TO TELL ME WHERE. PATIENT SPOUSE CAME IN AND WAS WORRIED WELL ABOUT PATIENT BEING IN PAIN, ADMINISTERED PRN PAIN MEDICATION WILL CONTINUE WITH PLAN OF CARE
[2019-12-02 08:16] VITALS: BP 154/95
--- NOTE | 2019-12-02 09:43 | NUR ---
PATIENT IS CRYING OUT IN EXCRUCIATING PAIN, ADMINISTERED SCHEDULED PAIN MEDICATION AND ELEVATED KNEE AREA OF BED SINCE PATIENT WAS SAYING "MY KNEE OHH MY KNEE" APPLIED ICE TO THE AREA WELL. SPOKE TO SPOUSE AND TOLD HER I WILL DO MY BEST TO GET PATIENT PAIN UNDER CONTROL UNTIL MAKES ROUNDS. NO OTHER NEEDS AT THIS TIME CONTINUE WITH PLAN OF CARE
--- NOTE | 2019-12-02 10:45 | NUR ---
I have reviewed this patient and I concur with the Shift Assessment completed by the Licensed Practical Nurse today this shift.
[2019-12-02 12:23] VITALS: BP 149/104
--- NOTE | 2019-12-02 16:00 | NUR ---
ADMINISTERED PRN PAIN MEDICATION. PATIENT MOANING AND GRBBING RT LEG THIS AFTERNOON PLACED PT ICE PACK ON LEG ALSO. SPOUSE AT BEDSIDE, CONTINUE WITH PLAN OF CARE
[2019-12-02 16:40] VITALS: BP 149/101
--- NOTE | 2019-12-02 19:00 | NUR ---
BEDSIDE REPORT RECEIVED AND CARE OF PT ASSUMED. PT LYING IN MID ESPINOZA'S POSITION WITH EYES CLOSED AND EASY RESPIRATIONS. IP PATENT WITH NS INFUSING AT 30 ML/HR. CAZARES CATHETER DRAINING TO GRAVITY WITH YELLOW URINE IN COLLECTION BAG. WILL MONITOR FOR NEEDS.
--- NOTE | 2019-12-02 20:32 | NUR ---
HS MEDICATIONS GIVEN. WILL CONTINUE TO MONITOR FOR NEEDS.
[2019-12-02 21:16] VITALS: BP 127/78
[2019-12-03 01:27] VITALS: BP 129/78
[2019-12-03 05:44] VITALS: BP 122/82
[2019-12-03 07:46] VITALS: BP 156/91
[2019-12-03] MEDS ORDERED: BETAPACE 80 MG80 MG PO (07:46)
[2019-12-03] MEDS ORDERED: CATAPRES0.1 MG PO (07:47)
[2019-12-03] MEDS ORDERED: XOPENEX 1.1.25 MG/3 INH (07:47)
[2019-12-03] MEDS ORDERED: OXYCONTIN10 MG PO (07:48)
--- NOTE | 2019-12-03 09:25 | MORECARE ---
CASE MANAGEMENT DISCHARGE SUMMARY PATIENT: ALICIA MEDEIROS UNIT: [id number] ADM DATE: 11/22/19 AGE: 84 : 34 SEX: M ROOM/BED: D.2225 AUTHOR: AUDREYDOC PHYSICIAN: REFERRING PHYSICIAN: ISMAEL MOHAN MD DATE OF SERVICE: 12/03/19 Discharge Plan Patient Name: ALICIA MEDEIROS Facility: [facility]:[place] : 1935 Planned Disposition: Senior Living Facility Anticipated Discharge Date: Discharge Date: Expected LOS: Initial Reviewer: [email or web address] Initial Review Date: 11/28/2019 Generated: 12/03/19 10:24 am Comments DCP- Discharge Planning Updated by [email or web address]: Lexus Finley on 12/03/19 7:[address] Patient Name: ALICIA MEDEIROS Admission Status: ER Accout number: [id number] Admission Date: 11-22-2019 : 1935 Admission Diagnosis:METABOLIC ENCEPHALOPATHY Attending: ISMAEL MOHAN Current LOS: 11 Anticipated DC Date: Planned Disposition: Senior Living Facility Primary Insurance: MEDICARE A & B Discharge Planning Comments: FAXED UPDATE TO [facility], WAITING CALL BACK. Jig Box Operator: Lexus Finley DCP- Discharge Planning Updated by [id number]: Lexus Finley on 11/29/19 7:[address] Patient Name: ALICIA MEDEIROS Admission Status: ER Accout number: [id number] Admission Date: 11-22-2019 : 1935 Admission Diagnosis:METABOLIC ENCEPHALOPATHY Attending: ISMAEL MOHAN Current LOS: 7 Anticipated DC Date: Planned Disposition: Senior Living Facility Primary Insurance: MEDICARE A & B Discharge Planning Comments: RECEIVED CALL FROM [facility] AND THEY DO NOT HAVE BED AVAILABILITY. I HAVE FAXED TO [facility], WAITING CALL BACK. Jig Box Operator: Lexus Finley DCP- Discharge Planning Updated by [email or web address]: Lexus Finley on 11/28/19 11:[address] Patient Name: ALICIA MEDEIROS Admission Status: ER Accout number: [id number] Admission Date: 11-22-2019 : 1935 Admission Diagnosis:METABOLIC ENCEPHALOPATHY Attending: ISMAEL MOHAN Current LOS: 6 Anticipated DC Date: Planned Disposition: Senior Living Facility Primary Insurance: MEDICARE A & B Discharge Planning Comments: CM met PATIENT SALVATORE after explaining CM role and obtaining verbal consent. SHE IS ALSO HIS POA. CM discussed availability / needs of home health, REHAB and medical equipment. SHE IS INTERESTED IN SNF THEN TRANSITION TO [facility] OR [facility] HOSPICE. SHE IS INTERESTED IN [facility] OR [facility]. CANDACE SIGNED. I AM FAXING REFERRAL TO [facility] NOW. Jig Box Operator: Lexus Finley DCPIA - Discharge Planning Initial Assessment Updated by [id number]: Lexus Finley on 11/28/19 12:06 pm * Is the patient Alert and Oriented? Yes * Preadmission Environment Home with Family * Other Equipment WALKER * List name and contact numbers for known caregivers / representatives who currently or will assist patient after discharge: SALVATORE//POA [phone] * Community resources currently utilized None * Additional services required to return to the preadmission environment? Yes * Can the patient safely return to the preadmission environment? No * Has this patient been hospitalized within the prior 30 days at any hospital? No Coverage Notice Reviewer: [id number] - Lexus Finley Notice Issued Date-Time: 11/28/2019 12:15 Notice Type: Patient Choice Letter Notice Delivered To: Family Member Relationship to Patient: Power of Elevator Service Technician Body Straightener Name: SALVATORE IS AND POA Delivery Method: HAND - Hand Delivered Danae Days: Prior Verbal Notification: Recipient Understood Notice: Yes Recipient Signature: Yes Med Rec Note Co-signed by Attending: Coverage Notice Comment: [facility]. Last DP export: 11/29/19 3:38 p Patient Name: ALICIA MEDEIROS Page [phone] at 0925 All edits/amendments must be made on the electronic document DICTATION DATE: 12/03/19924 SNELLER HAND: CLEMENT 12/03/19924 RPT#: [id number] DC DATE: STATUS: ADM IN [facility] [address] [place] [address] END OF REPORT
--- NOTE | 2019-12-03 10:52 | MORECARE ---
CASE MANAGEMENT DISCHARGE SUMMARY PATIENT: ALICIA MEDEIROS UNIT: [id number] ADM DATE: 11/22/19 AGE: 84 : 34 SEX: M ROOM/BED: D.2225 AUTHOR: AUDREYDOC PHYSICIAN: REFERRING PHYSICIAN: ISMAEL MOHAN MD DATE OF SERVICE: 12/03/19 Discharge Plan Patient Name: ALICIA MEDEIROS Facility: [facility]:[place] : 1935 Planned Disposition: Retirement Facility Anticipated Discharge Date: Discharge Date: Expected LOS: Initial Reviewer: [email or web address] Initial Review Date: 11/28/2019 Generated: 12/03/19 11:51 am Comments DCP- Discharge Planning Updated by [email or web address]: Lexus Finley on 12/03/19 7:[address] Patient Name: ALICIA MDEEIROS Admission Status: ER Accout number: [id number] Admission Date: 11-22-2019 : 1935 Admission Diagnosis:METABOLIC ENCEPHALOPATHY Attending: ISMAEL MOHAN Current LOS: 11 Anticipated DC Date: Planned Disposition: Retirement Facility Primary Insurance: MEDICARE A & B Discharge Planning Comments: FAXED UPDATE TO [facility], WAITING CALL BACK. Information Systems Director: Lexus Finley DCP- Discharge Planning Updated by [email or web address]: Lexus Finley on 11/29/19 7:[address] Patient Name: ALICIA MEDEIROS Admission Status: ER Accout number: [id number] Admission Date: 11-22-2019 : 1935 Admission Diagnosis:METABOLIC ENCEPHALOPATHY Attending: ISMAEL MOHAN Current LOS: 7 Anticipated DC Date: Planned Disposition: Retirement Facility Primary Insurance: MEDICARE A & B Discharge Planning Comments: RECEIVED CALL FROM [facility] AND THEY DO NOT HAVE BED AVAILABILITY. I HAVE FAXED TO [facility], WAITING CALL BACK. Information Systems Director: Lexus Finley DCP- Discharge Planning Updated by [email or web address]: Lexus Finley on 11/28/19 11:[address] Patient Name: ALICIA MEDEIROS Admission Status: ER Accout number: [id number] Admission Date: 11-22-2019 : 1935 Admission Diagnosis:METABOLIC ENCEPHALOPATHY Attending: ISMAEL MOHAN Current LOS: 6 Anticipated DC Date: Planned Disposition: Retirement Facility Primary Insurance: MEDICARE A & B Discharge Planning Comments: CM met PATIENT SALVATORE after explaining CM role and obtaining verbal consent. SHE IS ALSO HIS POA. CM discussed availability / needs of home health, REHAB and medical equipment. SHE IS INTERESTED IN SNF THEN TRANSITION TO [facility] OR [facility] HOSPICE. SHE IS INTERESTED IN [facility] OR [facility]. CANDACE SIGNED. I AM FAXING REFERRAL TO [facility] NOW. Information Systems Director: Lexus Finley DCPIA - Discharge Planning Initial Assessment Updated by [email or web address]: Lexus Finley on 11/28/19 12:06 pm * Is the patient Alert and Oriented? Yes * Preadmission Environment Home with Family * Other Equipment WALKER * List name and contact numbers for known caregivers / representatives who currently or will assist patient after discharge: SALVATORE//POA [phone] * Community resources currently utilized None * Additional services required to return to the preadmission environment? Yes * Can the patient safely return to the preadmission environment? No * Has this patient been hospitalized within the prior 30 days at any hospital? No External Providers External Provider: [facility] *([facility]ides [facility] Contact Date: Service Request Date: Service Type: Resolution: Reviewer: Comments: Coverage Notice Reviewer: [id number] - Lexus Malia Notice Issued Date-Time: 11/28/2019 12:15 Notice Type: Patient Choice Letter Notice Delivered To: Family Member Relationship to Patient: Power of Hepatologist Chain Puller Name: SALVATORE IS AND POA Delivery Method: HAND - Hand Delivered Danae Days: Prior Verbal Notification: Recipient Understood Notice: Yes Recipient Signature: Yes Med Rec Note Co-signed by Attending: Coverage Notice Comment: [facility]. Last DP export: 12/03/19 8:25 a Patient Name: ALICIA MEDEIROS Page [phone] at 1052 All edits/amendments must be made on the electronic document DICTATION DATE: 12/03/19 1051 HOT DIE PRESS OPERATOR: CLEMENT 12/03/19 1051 RPT#: [id number] DC DATE: STATUS: ADM IN [facility] [address] [place] [address] END OF REPORT
--- NOTE | 2019-12-03 10:58 | MORECARE ---
CASE MANAGEMENT DISCHARGE SUMMARY PATIENT: ALICIA MEDEIROS UNIT: [id number] ADM DATE: 11/22/19 AGE: 84 : 34 SEX: M ROOM/BED: D.2225 AUTHOR: AUDREY,DOC PHYSICIAN: REFERRING PHYSICIAN: ISMAEL MOHAN MD DATE OF SERVICE: 12/03/19 Discharge Plan Patient Name: ALICIA MEDEIROS Facility: [facility]:[place] : 1935 Planned Disposition: Prison Facility Anticipated Discharge Date: Discharge Date: Expected LOS: Initial Reviewer: [id number] Initial Review Date: 11/28/2019 Generated: 12/03/19 11:58 am Comments DCP- Discharge Planning Updated by [email or web address]: Lexus Finley on 12/03/19 9:[address] Patient Name: ALICIA MEDEIROS Admission Status: ER Accout number: [id number] Admission Date: 11-22-2019 : 1935 Admission Diagnosis:METABOLIC ENCEPHALOPATHY Attending: ISMAEL MOHAN Current LOS: 11 Anticipated DC Date: Planned Disposition: Prison Facility Primary Insurance: MEDICARE A & B Discharge Planning Comments: CM MET WITH PATIENT'S TODAY, AND SHE WANTS HIM TO GO TO HOSPICE AT [facility] REFERRAL FAXED TO [facility] AT [facility]. WAITING CALL BACK. Spinner Hydraulic: Lexus Finley DCP- Discharge Planning Updated by [id number]: Lexus Finley on 12/03/19 7:[address] Patient Name: ALICIA MEDEIROS Admission Status: ER Accout number: [id number] Admission Date: 11-22-2019 : 1935 Admission Diagnosis:METABOLIC ENCEPHALOPATHY Attending: ISMAEL MOHAN Current LOS: 11 Anticipated DC Date: Planned Disposition: Prison Facility Primary Insurance: MEDICARE A & B Discharge Planning Comments: CM FAXED UPDATE TO [facility], WAITING CALL BACK. Spinner Hydraulic: Lexus Finley DCP- Discharge Planning Updated by [email or web address]: Lexus Finley on 11/29/19 7:[address] Patient Name: ALICIA MEDEIROS Admission Status: ER Accout number: [id number] Admission Date: 11-22-2019 : 1935 Admission Diagnosis:METABOLIC ENCEPHALOPATHY Attending: ISMAEL MOHAN Current LOS: 7 Anticipated DC Date: Planned Disposition: Prison Facility Primary Insurance: MEDICARE A & B Discharge Planning Comments: RECEIVED CALL FROM [facility] AND THEY DO NOT HAVE BED AVAILABILITY. I HAVE FAXED TO [facility], WAITING CALL BACK. Spinner Hydraulic: Lexus Finley DCP- Discharge Planning Updated by [email or web address]: Lexus Finley on 11/28/19 11:[address] Patient Name: ALICIA MEDEIROS Admission Status: ER Accout number: [id number] Admission Date: 11-22-2019 : 1935 Admission Diagnosis:METABOLIC ENCEPHALOPATHY Attending: ISMAEL MOHAN Current LOS: 6 Anticipated DC Date: Planned Disposition: Prison Facility Primary Insurance: MEDICARE A & B Discharge Planning Comments: CM met PATIENT SALVATORE after explaining CM role and obtaining verbal consent. SHE IS ALSO HIS POA. CM discussed availability / needs of home health, REHAB and medical equipment. SHE IS INTERESTED IN SNF THEN TRANSITION TO [facility] OR POSSIBLLY HOSPICE. SHE IS INTERESTED IN [facility] OR [facility]. CANDACE SIGNED. I AM FAXING REFERRAL TO [facility] NOW. Spinner Hydraulic: Lexus Finley DCPIA - Discharge Planning Initial Assessment Updated by [email or web address]: Lexus Finley on 11/28/19 12:06 pm * Is the patient Alert and Oriented? Yes * Preadmission Environment Home with Family * Other Equipment WALKER * List name and contact numbers for known caregivers / representatives who currently or will assist patient after discharge: SALVATORE//POA [phone] * Community resources currently utilized None * Additional services required to return to the preadmission environment? Yes * Can the patient safely return to the preadmission environment? No * Has this patient been hospitalized within the prior 30 days at any hospital? No Coverage Notice Reviewer: [id number] - Lexus Finley Notice Issued Date-Time: 11/28/2019 12:15 Notice Type: Patient Choice Letter Notice Delivered To: Family Member Relationship to Patient: Power of Microstrategy Architect Developer Software Engineering Associate Manager Name: SALVATORE IS AND POA Delivery Method: HAND - Hand Delivered Danae Days: Prior Verbal Notification: Recipient Understood Notice: Yes Recipient Signature: Yes Med Rec Note Co-signed by Attending: Coverage Notice Comment: [facility]. Last DP export: 12/03/19 9:52 a Patient Name: ALICIA MEDEIROS Page [phone] at 1058 All edits/amendments must be made on the electronic document DICTATION DATE: 12/03/191057 POLE SANDER OPERATOR: CLEMENT 12/03/191057 RPT#: [id number] DC DATE: STATUS: ADM IN [facility] [address] [place] [address] END OF REPORT
--- NOTE | 2019-12-03 11:45 | NUR ---
I have reviewed this patient and I concur with the Shift Assessment completed by the Licensed Practical Nurse today this shift.
[2019-12-03 12:03] VITALS: BP 119/74
--- NOTE | 2019-12-03 12:40 | NUR ---
PATIENT IN EXCRUCIATING PAIN FROM BEING REPOSITIONED, UNABLE TO ADMINISTER PATIENT ANY OTHER MEDICATION AT THIS TIME. CL IN REACH, SPOUSE AT [facility], CONTINUE WITH PLAN OF CARE
--- NOTE | 2019-12-03 15:30 | NUR ---
SPOKE TO PAPO, PATIENT IS BEING DC TO [facility] AT [facility], REPORT GIVEN TO LYLE AT 1520. PENDING DC ORDERS FROM DR MOHAN
[2019-12-03 16:41] VITALS: BP 129/79
--- NOTE | 2019-12-03 18:18 | NUR ---
PATIENT TRANSFERRD TO [facility] VIA AMBULANCE, [place] CHASE PT SPOUSE SIGNED ALL PAPERWORK
--- NOTE | 2019-12-04 16:40 | MORECARE ---
CASE MANAGEMENT DISCHARGE SUMMARY PATIENT: ALICIA MEDEIROS UNIT: [id number] ADM DATE: 11/22/19 AGE: 84 : 34 SEX: M ROOM/BED: D.2225 AUTHOR: CARLOS VENTURA PHYSICIAN: REFERRING PHYSICIAN: ISMAEL MOHAN MD DATE OF SERVICE: 12/04/19 Discharge Plan Patient Name: ALICIA MEDEIROS Facility: [facility]:[place] : 1935 Planned Disposition: Long Term Facility Anticipated Discharge Date: Discharge Date: 12/03/2019 Expected LOS: Initial Reviewer: [email or web address] Initial Review Date: 11/28/2019 Generated: 12/04/19 5:39 pm Comments DCP- Discharge Planning Updated by [email or web address]: Lexus Finley on 12/03/19 9:[address] Patient Name: ALICIA MEDEIROS Admission Status: ER Accout number: [id number] Admission Date: 11-22-2019 : 1935 Admission Diagnosis:METABOLIC ENCEPHALOPATHY Attending: ISMAEL MOHAN Current LOS: 11 Anticipated DC Date: Planned Disposition: Long Term Facility Primary Insurance: MEDICARE A & B Discharge Planning Comments: CM MET WITH PATIENT'S TODAY, AND SHE WANTS HIM TO GO TO HOSPICE AT [facility]. REFERRAL FAXED TO [facility] AT [facility]. WAITING CALL BACK. Mobile Application Engineer: Lexus Finley DCP- Discharge Planning Updated by [id number]: Lexus Finley on 12/03/19 7:[address] Patient Name: ALICIA MEDEIROS Admission Status: ER Accout number: [id number] Admission Date: 11-22-2019 : 1935 Admission Diagnosis:METABOLIC ENCEPHALOPATHY Attending: ISMAEL MOHAN Current LOS: 11 Anticipated DC Date: Planned Disposition: Long Term Facility Primary Insurance: MEDICARE A & B Discharge Planning Comments: CM FAXED UPDATE TO [facility], WAITING CALL BACK. Mobile Application Engineer: Lexus Finley DCP- Discharge Planning Updated by [email or web address]: Lexus Finley on 11/29/19 7:[address] Patient Name: ALICIA MEDEIROS Admission Status: ER Accout number: [id number] Admission Date: 11-22-2019 : 1935 Admission Diagnosis:METABOLIC ENCEPHALOPATHY Attending: ISMAEL MOHAN Current LOS: 7 Anticipated DC Date: Planned Disposition: Long Term Facility Primary Insurance: MEDICARE A & B Discharge Planning Comments: RECEIVED CALL FROM [facility] AND THEY DO NOT HAVE BED AVAILABILITY. I HAVE FAXED TO [facility], WAITING CALL BACK. Mobile Application Engineer: Lexus Finley DCP- Discharge Planning Updated by [id number]: Lexus Finley on 11/28/19 11:[address] Patient Name: ALICIA MEDEIROS Admission Status: ER Accout number: [id number] Admission Date: 11-22-2019 : 1935 Admission Diagnosis:METABOLIC ENCEPHALOPATHY Attending: ISMAEL MOHAN Current LOS: 6 Anticipated DC Date: Planned Disposition: Long Term Facility Primary Insurance: MEDICARE A & B Discharge Planning Comments: CM met PATIENT SALVATORE after explaining CM role and obtaining verbal consent. SHE IS ALSO HIS POA. CM discussed availability / needs of home health, REHAB and medical equipment. SHE IS INTERESTED IN SNF THEN TRANSITION TO [facility] OR [facility] HOSPICE. SHE IS INTERESTED IN [facility] OR [facility]. CANDACE SIGNED. I AM FAXING REFERRAL TO [facility] NOW. Mobile Application Engineer: Lexus Finley DCPIA - Discharge Planning Initial Assessment Updated by [email or web address]: Lexus Finley on 11/28/19 12:06 pm * Is the patient Alert and Oriented? Yes * Preadmission Environment Home with Family * Other Equipment WALKER * List name and contact numbers for known caregivers / representatives who currently or will assist patient after discharge: SALVATORE//POA [phone] * Community resources currently utilized None * Additional services required to return to the preadmission environment? Yes * Can the patient safely return to the preadmission environment? No * Has this patient been hospitalized within the prior 30 days at any hospital? No Coverage Notice Reviewer: [id number] Candido Finley Notice Issued Date-Time: 11/28/2019 12:15 Notice Type: Patient Choice Letter Notice Delivered To: Family Member Relationship to Patient: Power of Mud Analysis Operator Drafter Geological Name: SALVATORE IS AND POA Delivery Method: HAND - Hand Delivered Danae Days: Prior Verbal Notification: Recipient Understood Notice: Yes Recipient Signature: Yes Med Rec Note Co-signed by Attending: Coverage Notice Comment: [facility]. Reviewer: [id number] Finley Notice Issued Date-Time: 12/03/2019 15:46 Notice Type: IM Discharge Notice Notice Delivered To: Relationship to Patient: Drafter Geological Name: Delivery Method: HAND - Hand Delivered Danae Days: Prior Verbal Notification: Recipient Understood Notice: Yes Recipient Signature: Yes Med Rec Note Co-signed by Attending: Coverage Notice Comment: /POA SIGNED Last DP export: 12/03/19 9:58 a Patient Name: ALICIA MEDEIROS Page [phone] at 1640 All edits/amendments must be made on the electronic document DICTATION DATE: 12/04/19 1640 ASSOCIATE JAVA DEVELOPER: CLEMENT 12/04/19 1640 RPT#: [id number] DC DATE:12/03/19 STATUS: DIS IN [facility] [address] [place] [address] END OF REPORT
== END 2019-12-03 18:19 | disposition home health service (06) | DRG 840 ==
LOC: D.ER 11:37 → D.MS 14:05 → D.M2 14:05 → D.MS 11-26 06:24
PROVIDERS: Family Medicine; Radiology Diagnostic Radiology; ADMIT Family Medicine; ATTEND Family Medicine
PROC: 07DR3ZX Extraction of Iliac Bone Marrow, Percutaneous Approach, Diagnostic (ICD-10-PCS; principal; 2019-11-26 08:28)
DX: C90.02 Multiple myeloma in relapse (principal); G93.41 Metabolic encephalopathy; R40.2124 Coma scale, eyes open, to pain, 24 hours or more after hospital admission; R40.2344 Coma scale, best motor response, flexion withdrawal, 24 hours or more after hospital admission; R40.2224 Coma scale, best verbal response, incomprehensible words, 24 hours or more after hospital admission; J84.9 Interstitial pulmonary disease, unspecified; R33.9 Retention of urine, unspecified; R53.1 Weakness; G62.9 Polyneuropathy, unspecified; I10 Essential (primary) hypertension